=== PATIENT | female | born 1955 | race Caucasian/White ===

== ENCOUNTER 2018-02-02 21:35 | Observation (INO) ==
--- NOTE | 2018-02-02 22:02 | Emergency Department Note ---
Disposition Clinical Impression: Abscess of finger of right hand, Cellulitis of right hand Disposition: Admitted As Inpatient Condition: Good Wound/Laceration HPI - General Chief Complaint: ED Wound/Laceration Stated Complaint: paronychia, worse pain today Source: patient Mode of arrival: private vehicle Limitations: no limitations Nursing Notes Reviewed: Yes Vital Signs Reviewed: Yes - History of Present Illness HPI Narrative: Patient presents to the ED with complaint of worsening infection to her right index finger. She states that she has had a bump on her right index finger for many months that initially had a white head on it and she thought it was a "arthritis bump". She was at [place] last week and states that she " bumped her finger" several times during her vacation and then 2 days ago she started having pain, swelling and redness at the stie of the bump that began spreading down the finger. She states there had been some clear and white drainage from the bump. She went to urgent care yesterday morning and was diagnosed with a paronychia and finger abscess. I&D was performed at urgent care and wound culture was collected per urgent care notes. She was prescribed indomethacin and clindamycin. She has had a total of 6 doses of clindamycin and has been taking indomethacin 3 times a day but states today the redness and swelling had spread further down her finger into her hand and her pain has been increasing. She describes a hot throbbing pain throughout the finger that is not relieved with the medication she has been taking at home. She denies any fever or chills. - Related Data Home Medications Medication Instructions Recorded Confirmed Atorvastatin [Lipitor] 10 mg PO HS 02/02/18 02/02/18 Citalopram [CeleXA] 20 mg PO DAILY 02/02/18 02/02/18 Glimepiride [Amaryl] 1 mg PO 02/02/18 Meloxicam 15 mg PO DAILY 02/02/18 02/02/18 metFORMIN [Glucophage] 1,000 mg PO BIDWM 02/02/18 02/02/18 Previous Rx's Medication Instructions Recorded Clindamycin HCl 300 mg PO TID #30 capsule 02/01/18 Indomethacin 50 mg PO TID PRN #20 capsule 02/01/18 Allergies Allergy/AdvReac Type Severity Reaction Status Date / Time Amoxicillin AdvReac Gastrointestinal Verified 02/02/18 21:36 Upset Constitutional: Denies: fever, chills, weakness, weight change Eyes: Denies: eye pain, eye discharge, vision change ENT ED: Denies: ear pain, throat pain, dental pain, hearing loss, epistaxis, congestion, dysphagia Cardiovascular: Denies: chest pain, palpitations, dyspnea on exertion, edema, syncope Respiratory: Denies: cough, dyspnea, wheezes, hemoptysis, stridor Gastrointestinal: Denies: abdominal pain, nausea, vomiting, diarrhea, constipation, hematemesis, melena, hematochezia Genitourinary: Denies: dysuria, frequency, hematuria, discharge Musculoskeletal: Reports: as per HPI, arthralgia (right index finger). Denies: back pain, neck pain, myalgia Integumentary: Reports: as per HPI Neurological: Denies: headache, weakness, numbness, paresthesias, confusion, abnormal gait, vertigo Psychiatric: Denies: anxiety, depression, suicidal thoughts, homicidal thoughts , auditory hallucinations, visual hallucinations Endocrine: Denies: fatigue Hematological/Lymphatic: Denies: easy bleeding, easy bruising Allergic/Immunologic: Denies: facial swelling, urticaria Past Medical History - Past Medical History Medical history: Reports: diabetes, hyperlipidemia, hypertension - Social History Smoking Status: Never smoker Smokeless Tobacco Status: No Alcohol use: Reports: none Drug use: Reports: none Physical Exam - General Limitations: no limitations General appearance: alert, in no apparent distress - Head Head exam: atraumatic, normocephalic, normal inspection - Eye Eye exam: Present: normal appearance, PERRL, EOMI - Chest Chest inspection: Present: normal inspection, symmetric chest wall rise - Respiratory Respiratory exam: Present: normal lung sounds bilaterally - Cardiovascular Cardiovascular exam: Present: regular rate, normal rhythm, normal heart sounds - Extremities Exam Extremities exam: Present: normal inspection, full ROM. Absent: tenderness, pedal edema - Expanded Upper Extremity Exam Forearm/Wrist exam: Present: normal inspection, full ROM Hand exam: Present: tenderness (R index finger), swelling (right index finger extending to MCP joint), ecchymosis (surrounding lesion), erythema (R index finger extending to MCP and dorsum of hand along with warmth), other (raised lesion on dorsum of R index near DIP, no nailbed involvement, scant purulent drainage with manipulation). Absent: full ROM (limited in right index due to swelling) Neuromotor exam: Normal: wrist extension, thumb opposition, thumb IP flexion, thumb adduction, fingers 2-5 abduction Neurosensory exam: Normal: radial nerve Hand tendon exam: Normal: flexor digitorum profundus (location) (R index), flexor digitorum superficialis (location) (R index), extensor tendon (location) (R index) - Neurological Exam Neurological exam: Present: alert, oriented X3 - Psychiatric Psychiatric exam: Present: normal affect, normal mood - Skin Skin exam: Present: warm, dry, intact, normal color Course Course Narrative: Patient presents to the ED with worsening redness, pain and swelling of the right index finger where she had an abscess that was opened and drained 36 hours ago. Given that she has had 6 doses of oral antibiotics with worsening symptoms will obtain lab work and x-ray to rule out any other injury or signs of systemic infection. Will start IV antibiotics given that she has failed outpatient oral therapy. - Reevaluation(s) Reevaluation #1: Glucose is elevated at 298 and ESR is elevated at 35 but remainder of lab work is normal. X-ray shows only soft tissue swelling with no bony abnormalities. There are no preliminary wound culture results available yet. Given the patient has failed outpatient oral antibiotics with worsening symptoms she requires admission for continued IV antibiotics and pain medication. Discussed this with the patient and she is in agreement. I spoke to the hospitalist on- call, Dr. Bush, who has agreed to admit the patient. Vital Signs Temperature 98.1 F 02/02/18 21:41 Pulse Rate 65 02/02/18 21:41 Respiratory Rate 16 02/02/18 21:41 Blood Pressure 198/93 02/02/18 21:41 O2 Sat by Pulse Oximetry 94 02/02/18 21:41 Temperature 97.8 F 02/03/18 01:43 Pulse Rate 60 02/03/18 01:43 Respiratory Rate 18 02/03/18 01:43 Blood Pressure 168/67 02/03/18 01:43 O2 Sat by Pulse Oximetry 94 02/03/18 01:43 Oxygen Delivery Oxygen Delivery Room Air Wound/Laceration - Differential Diagnosis Differential Diagnosis: Likely: abscess (with cellulitis) - Medical Records Medical records reviewed: Yes I reviewed the patient's medical records. - Lab Data Lab results reviewed: Yes I reviewed the patient's lab results. Result diagrams: 02/02/18 22:29 02/02/18 22:29 Lab Results 02/02/18 02/02/18 02/02/18 Range/Units 22:29 22:29 22:29 WBC 8.6 (4.3-11.1) K/mcL RBC 4.29 (3.82-4.97) M/mcL Hgb 13.2 (11.5-15.4) g/dL Hct 39.5 (35.3-44.9) % MCV 92.1 (83.0-100.0) fL MCH 30.8 (28.0-33.3) pg MCHC 33.4 (31.6-35.5) g/dL RDW 12.2 (11.5-14.5) % Plt Count 197 (140-400) K/mcL MPV 9.2 L (9.4-12.4) fL Immature Gran % 0.2 (0-4) % Seg Neutrophils % 68.2 % Lymphocytes % 21.5 % Monocytes % 7.2 % Eosinophils % 2.5 % Basophils % 0.4 % Neutrophils # 5.9 (1.6-8.9) K/mcL Lymphocytes # 1.8 (0.6-4.6) K/mcL Monocytes # 0.6 (0.0-1.3) K/mcL Eosinophils # 0.2 (0.0-0.6) K/mcL Basophils # 0.0 (0.0-0.2) K/mcL ESR 39 H (0-30) mm/hr Sodium 136 (136-145) mEq/L Potassium 3.9 (3.5-5.1) mEq/L Chloride 99 (98-107) mEq/L Carbon Dioxide 31 H (23-29) mEq/L BUN 20 (8-23) mg/dL Creatinine 0.90 (0.60-1.20) mg/dL Est GFR ( Amer) > 60 (> 60) Est GFR (Non-Af Amer) > 60 (> 60) BUN/Creatinine Ratio 22 (6-26) Glucose 298 H (70-105) mg/dL Calculated Osmolality 296 (280-300) Calcium 9.9 (8.6-10.3) mg/dL - Radiology Data Radiology results reviewed: Yes I reviewed the patient's radiology results. ITS Impressions Finger X-Ray 02/02/18 22:19 IMPRESSION: No acute osseous abnormality detected. RECOMMENDATIONS: MRI or bone scan for further evaluation if there is concern for osteomyelitis. D/ / Storm Mahmood MD / Storm Mahmood MD Interpreting Provider: Storm Mahmood MD
[2018-02-02] MEDS ORDERED: Clindamycin 600 MG/50 ML 600 MG/50 ML IV.SOLN IVPB ONE (22:20)
[2018-02-02 22:35] LABS: Basophils % 0.4 %; Eosinophils # 0.2 K/mcL (0.0-0.6); Eosinophils % 2.5 %; Hematocrit 39.5 % (35.3-44.9); Hemoglobin 13.2 g/dL (11.5-15.4); Immature Granulocytes % 0.2 % (0-4); Lymphocytes # 1.8 K/mcL (0.6-4.6); Lymphocytes % 21.5 %; Mean Corpuscular HGB Conc 33.4 g/dL (31.6-35.5); Mean Corpuscular Hemoglobin 30.8 pg (28.0-33.3); Mean Corpuscular Volume 92.1 fL (83.0-100.0); Mean Platelet Volume 9.2 fL (9.4-12.4); Monocytes # 0.6 K/mcL (0.0-1.3); Monocytes % 7.2 %; Neutrophils # 5.9 K/mcL (1.6-8.9); Platelet Count 197 K/mcL (140-400); Red Blood Count 4.29 M/mcL (3.82-4.97); Red Cell Distribution Width 12.2 % (11.5-14.5); Segmented Neutrophils % 68.2 %
[2018-02-02 22:54] LABS: BUN/Creatinine Ratio 22 (6-26); Blood Urea Nitrogen 20 mg/dL (8-23); Calcium 9.9 mg/dL (8.6-10.3); Carbon Dioxide 31 mEq/L (23-29); Chloride 99 mEq/L (98-107); Glucose 298 mg/dL (70-105); Osmolality,Calculated 296 (280-300); Potassium 3.9 mEq/L (3.5-5.1); Sodium 136 mEq/L (136-145); eGFR For African Americans > 60 (> 60); eGFR For Non-African Americans > 60 (> 60)
[2018-02-03] MEDS ORDERED: *HR* OxyCODONE Immed Rel 5 MG TABLET PO PRN (02:22)
[2018-02-03] MEDS ORDERED: *HR* HYDROcodone/Acet 5/325 mg TABLET PO PRN (02:22)
[2018-02-03] MEDS ORDERED: Naloxone 0.4 MG/ML INJ IVP PRN ×2 (02:22→06:17)
[2018-02-03] MEDS ORDERED: Acetaminophen 325 MG TABLET PO PRN ×2 (02:22→06:17)
[2018-02-03] MEDS: *HR* Metformin 500 MG TABLET PO SCH ×2 (08:04→17:26)
[2018-02-03] MEDS: *HR* Glimepiride 2 MG TABLET PO SCH (10:45)
--- NOTE | 2018-02-03 10:48 | Internal Med History&Physical ---
Date of Encounter: 02/03/18 Time of Encounter: 10:05 Assessment and Plan (1) Abscess of finger of right hand Current visit: Yes Status: Acute Likely infection of digital myxoid cyst. Preliminary wound culture report from 02/01/2018 shows 2 organisms. Group B strep has been identified with a second gram-positive cocci. Continue clindamycin IV until final report available. Will add lactobacillus. (2) Hypertension Current visit: Yes Status: Chronic She is uncertain of her home medication. Will give amlodipine until medication from home can be obtained. Qualifiers: Hypertension type: essential hypertension Qualified Code(s): I10 - Essential (primary) hypertension (3) DM type 2 (diabetes mellitus, type 2) Current visit: Yes Status: Acute Continue Amaryl and metformin. Qualifiers: Diabetes mellitus exterminator termite insulin use: without exterminator termite use Diabetes mellitus complication status: with unspecified complications Qualified Code(s) : E11.8 - Type 2 diabetes mellitus with unspecified complications (4) Obesity, morbid, BMI 50 or higher Current visit: Yes Status: Acute Internal Medicine - H&P: HPI Chief complaint: Right index finger inflammation Admitted From: Emergency Dept Plans for Post Hospital Care: Home History of present illness: Ms. Mack is a 62 year old female who came to emergency room stating she had onset of pain and redness in her right index finger approximately 3 days previously. [place] bumped the dorsum of the DIP area. She noticed some gradual enlargement of a nodule that had been present for several weeks to months. She reports the nodule eventually spontaneously drained some clear fluid. She went to a local [facility] urgent care the morning of February 01 and had incision and drainage done. She was placed on clindamycin and indomethacin. There was no improvement so she came to emergency room the evening of February 02. She was evaluated and admitted to [facility] floor for ongoing care needs. She reports feeling chilled last night but denies previous fevers or chills. She has not noticed lymphangitic streaking in her arm. She denies previous similar episodes. She has DJD but denies gout or other bone joint or muscle disorders. Past Med Surg Social Fam HX - Past Medical History Medical history: diabetes, hyperlipidemia, hypertension Psychiatric history: no psych history - Past Surgical History Surgical History: cholecystectomy, hysterectomy - Social History Smoking Status: Never smoker Smokeless Tobacco Status: No Alcohol use: none Drug use: none Internal Medicine - H&P: Meds Clindamycin HCl 300 mg PO TID #30 capsule 02/01/18 [Rx] Indomethacin 50 mg PO TID PRN #20 capsule 02/01/18 [Rx] Atorvastatin [Lipitor] 10 mg PO HS 02/02/18 [History] Citalopram [CeleXA] 20 mg PO DAILY 02/02/18 [History] Glimepiride [Amaryl] 1 mg PO DAILY 02/02/18 [History] Meloxicam 15 mg PO DAILY 02/02/18 [History] metFORMIN [Glucophage] 1,000 mg PO BIDWM 02/02/18 [History] 3 Allergy/AdvReac Type Severity Reaction Status Date / Time Amoxicillin AdvReac Gastrointestinal Verified 02/02/18 21:36 Upset All Systems PM: A 10-system review of systems was performed and is negative for pertinent findings except as documented above in the HPI. Review of systems: Gen.: She states her weight has increased the past year but she cannot quantitate further. Cardiovascular: She has history of hypertension denies UT heart failure angina DVT or pulmonary embolus Respiratory: She is a lifelong nonsmoker and has no known chronic lung disease GI: She has had cholecystectomy. She denies disorders of her liver or exocrine pancreas : She denies hematuria dysuria or kidney stones or other kidney or bladder disorders Neurologic: She denies large distribution strokes or seizures. Endocrine: She was diagnosed with DM 2 approximately 2011. She has hyperlipidemia but denies thyroid disease Hematology/oncology: She had uterine cancer with curative hysterectomy several years ago. She denies other internal malignancies. She has had anemia in the past that has resolved. Psychiatric: She has anxiety but denies depression or other mental health issues [place] skeletal: As per history of present illness. - Constitutional Vitals: Temp Pulse Resp BP Pulse Ox 98.7 F 67 17 158/71 94 02/03/18 06:00 02/03/18 06:00 02/03/18 06:00 02/03/18 06:00 02/03/18 06:00 Exam: Gen.: She is well-developed obese female lying in bed who appears in no severe distress HEENT: Head is atraumatic and normocephalic. Eyes: EOMI. There is no scleral icterus. Mouth: Mucosa is moist. Neck: Supple and nontender. There is no thyromegaly or adenopathy noted. Heart: Regular without murmurs gallops or ectopics Lungs: No wheezes or crackles are heard. Abdomen: Soft and nontender. No masses or guarding are noted. Extremities: There is no cyanosis edema or clubbing noted. Dorsalis pedis and posterior tibial pulses are trace to 1+ palpable bilaterally. Her right index finger shows significant erythema in the distal half with increased warmth and superficial necrotic area around the site of incision and drainage. There is no lymphangitic streaking seen in the arm. There are no enlarged epitrochlear or axillary nodes. Neurologic: Mental status: She is talkative and a good historian. Cranial nerves: Smile is symmetric. Forehead wrinkles bilaterally. Tongue protrudes midline. EOMI. Motor: There is no pronator drift. Cerebellar: Finger to nose is intact bilaterally. Skin: Warm and dry Internal Med - H&P Results - Labs CBC & Chem 7: 02/02/18 22:29 02/02/18 22:29 - VTE Reasons for not Prescribing Prophylaxis: Treatment not Indicated - Low risk for VTE
[2018-02-03] MEDS: *HR* OxyCODONE Immed Rel 5 MG TABLET PO PRN ×2 (10:49→20:24)
[2018-02-03] MEDS: amLODIPine 5 MG TABLET PO SCH (12:27)
[2018-02-03] MEDS: Lactobacillus 1 EACH CAP.SPRINK PO SCH ×2 (12:27→20:21)
[2018-02-03] MEDS: Clindamycin 600 MG/50 ML 600 MG/50 ML IV.SOLN IVPB SCH ×2 (12:29→20:18)
[2018-02-03] MEDS: *HR* HYDROcodone/Acet 5/325 mg TABLET PO PRN (17:33)
[2018-02-04] MEDS: Clindamycin 600 MG/50 ML 600 MG/50 ML IV.SOLN IVPB SCH ×2 (05:55→12:55)
[2018-02-04 06:06] LABS: Basophils % 0.2 %; Eosinophils # 0.2 K/mcL (0.0-0.6); Eosinophils % 3.5 %; Hematocrit 38.4 % (35.3-44.9); Hemoglobin 12.7 g/dL (11.5-15.4); Immature Granulocytes % 0.2 % (0-4); Lymphocytes # 1.6 K/mcL (0.6-4.6); Lymphocytes % 28.8 %; Mean Corpuscular HGB Conc 33.1 g/dL (31.6-35.5); Mean Corpuscular Hemoglobin 30.9 pg (28.0-33.3); Mean Corpuscular Volume 93.4 fL (83.0-100.0); Mean Platelet Volume 9.5 fL (9.4-12.4); Monocytes # 0.5 K/mcL (0.0-1.3); Monocytes % 8.6 %; Neutrophils # 3.4 K/mcL (1.6-8.9); Platelet Count 176 K/mcL (140-400); Red Blood Count 4.11 M/mcL (3.82-4.97); Red Cell Distribution Width 12.4 % (11.5-14.5); Segmented Neutrophils % 58.7 %
[2018-02-04] MEDS: *HR* HYDROcodone/Acet 5/325 mg TABLET PO PRN ×2 (08:54→16:53)
[2018-02-04] MEDS: *HR* Glimepiride 2 MG TABLET PO SCH (08:55)
[2018-02-04] MEDS: Lactobacillus 1 EACH CAP.SPRINK PO SCH (08:55)
[2018-02-04] MEDS: amLODIPine 5 MG TABLET PO SCH (08:55)
[2018-02-04] MEDS: *HR* Metformin 500 MG TABLET PO SCH ×2 (08:55→16:52)
[2018-02-04 11:43] VITALS: BP 164/86
--- NOTE | 2018-02-04 15:23 | Discharge Summary ---
Date of Encounter: 02/04/18 Time of Encounter: 15:10 - Discharge Diagnosis (1) Abscess of finger of right hand Priority: Primary Status: Acute (2) Hypertension Priority: Secondary Status: Chronic Qualifiers: Hypertension type: essential hypertension Qualified Code(s): I10 - Essential (primary) hypertension (3) DM type 2 (diabetes mellitus, type 2) Priority: Secondary Status: Acute Qualifiers: Diabetes mellitus intermediate insulin use: without termite treater helper use Diabetes mellitus complication status: with unspecified complications Qualified Code(s) : E11.8 - Type 2 diabetes mellitus with unspecified complications (4) Obesity, morbid, BMI 50 or higher Priority: Secondary Status: Chronic Hospital course: Ms. Mack is a 62 year old female who came to emergency room stating she had onset of pain and redness in her right index finger approximately 3 days previously. [place] the [place] and had [place] bumped the dorsum of the DIP area. She noticed some gradual enlargement of a nodule that had been present for several weeks to months. She reports the nodule eventually spontaneously drained some clear fluid. She went to a local [facility] urgent care the morning of February 01 and had incision and drainage done. She was placed on clindamycin and indomethacin. There was no improvement so she came to emergency room the evening of February 02. She was evaluated and admitted to [facility] floor for ongoing care needs. Initial orders were written by the emergency room physician. I saw her on February 03 and performed the history and physical. She was started empirically on IV clindamycin with lactobacillus. Urine culture report from 02/01/2018 showed growth of group B strep and MSSA. She had less inflammatory change in the finger when I saw her on February 04. Vital signs remained stable and WBC remained normal with no left shift. She felt stable for discharge home. She will continue with oral antibiotic and probiotic for 7 additional days. She will follow with her PCP Dr. Alvarado within 1 week. - Time Spent with Patient Total time spent providing and/or coordinating discharge services: - Discharge Medications Prescriptions: HYDROcodone/Acet 5/325 mg [[place] 5-325 mg] 1 tab PO Q6HR PRN 5 Days #20 tablet PRN Reason: Moderate Pain Doxycycline 100 mg PO BID #14 capsule Lactobacillus [Culturelle] 1 each PO BID #14 cap.sprink Sulfamethoxazole/Trimeth DS [Bactrim DS] 1 each PO BID #14 tablet Home Medications: Atorvastatin [Lipitor] 10 mg PO HS 02/02/18 [History] Citalopram [CeleXA] 20 mg PO DAILY 02/02/18 [History] Glimepiride [Amaryl] 1 mg PO DAILY 02/02/18 [History] metFORMIN [Glucophage] 1,000 mg PO BIDWM 02/02/18 [History] Doxycycline 100 mg PO BID #14 capsule 02/04/18 [Rx] HYDROcodone/Acet 5/325 mg [[place] 5-325 mg] 1 tab PO Q6HR PRN 5 Days #20 tablet 02/04/18 [Rx] Lactobacillus [Culturelle] 1 each PO BID #14 cap.sprink 02/04/18 [Rx] Meloxicam 15 mg PO DAILY PRN #0 02/04/18 [Rx] Sulfamethoxazole/Trimeth DS [Bactrim DS] 1 each PO BID #14 tablet 02/04/18 [Rx] Allergies/Adverse Reactions: 3 Allergy/AdvReac Type Severity Reaction Status Date / Time Amoxicillin AdvReac Gastrointestinal Verified 02/02/18 21:36 Upset Date of admission: 02/03/18 00:25 Primary care physician: Nabil Alvarado MD - Constitutional Vitals: Temp Pulse Resp BP Pulse Ox 98.4 F 74 18 164/86 94 02/04/18 00:00 02/04/18 11:11 02/04/18 11:11 02/04/18 11:11 02/04/18 11:11 - Patient Status Disposition: Home, Self-Care Condition: Good Functional capacity at discharge: independent ambulation Overall status at discharge: patient is progressing back to baseline - Discharge Instructions Follow Up With: Nabil Alvarado MD [Primary Care Provider] - 1 week - Diet and Activity Diet: diabetic diet - VTE Reasons for not Prescribing Prophylaxis: Treatment not Indicated - Low risk for VTE
== END 2018-02-04 17:06 | disposition home or self-care (01) ==
LOC: EMEROOPIK 21:35 → INPPIK 21:35
PROVIDERS: ADMIT Internal Medicine; ATTEND Internal Medicine